=== PATIENT | female | born 1990 | race Caucasian/White ===

== ENCOUNTER 2024-11-05 14:38 | Inpatient (IN) | payer BC, OTHER ==
[2024-11-05 14:48] VITALS: BMI 25.3
[2024-11-05] MEDS ORDERED: FAMOTIDINE 20 MG/50 ML IVPB 20 MG/50 ML MG IVPB ONE ×3 (15:05→16:30)
[2024-11-05] MEDS ORDERED: ACETAMINOPHEN INJECTION 100 ML ONE (15:44)
[2024-11-05] MEDS ORDERED: MAG HYDROX/AL HYDROX/SIMETH 30 ML UNIT-DOSE CUP ONE (15:44)
[2024-11-05 16:12] LABS: ABSOLUTE IMMATURE GRANULOCYTES 0.04 x10^3/uL (0.0-0.031); BASOPHILS # 0.03 x10^3/uL (0.01-0.08); EOSINOPHIL % 0.6 % (0.7-5.8); EOSINOPHILS # 0.08 x10^3/uL (0.04-0.36); MCHC 32.1 g/dl (32.2-35.5); MEAN CELL VOLUME 86.6 fl (79.4-94.8); MEAN PLT VOLUME 11.4 fl (9.4-12.3); MONOCYTE # 0.78 x10^3/uL (0.24-0.86); MONOCYTE % 6.1 % (4.7-12.5); RDW 14.6 % (12.1-16.8)
[2024-11-05] MEDS: SODIUM CHLORIDE 0.9% 500 ML INFUS.BAG IV ONE ×3 (16:15→19:34)
[2024-11-05] MEDS: ACETAMINOPHEN 1000 MG/100 ML BAG IVPB ONE (16:15)
[2024-11-05] MEDS: MAG HYDROX/AL HYDROX/SIMETH 30 ML UNIT-DOSE CUP PO ONE (16:15)
[2024-11-05 16:24] LABS: INR 1.0 (0.83-1.09); PROTHROMBIN TIME (PATIENT) 11.0 SEC (9.7-13.0)
[2024-11-05 16:26] LABS: ACTIVATED PTT 28.1 SECONDS (25.2-36.5)
[2024-11-05 16:36] LABS: EPI CELLS >36 /uL (0-25.1); HYALINE CASTS 3 /uL (0-3.1); URINE APPEARANCE CLEAR; URINE BACTERIA 104 /uL (0-1359); URINE BILIRUBIN NEGATIVE (NEGATIVE); URINE COLOR YELLOW; URINE GLUCOSE (UA) NEGATIVE (NEGATIVE); URINE KETONE TRACE (NEGATIVE); URINE LEUK ESTERASE NEGATIVE (NEGATIVE); URINE NITRITE NEGATIVE (NEGATIVE); URINE PROTEIN 1+ (NEGATIVE); URINE RBC 59 /uL (0-23.9); URINE UROBILINOGEN 0.2 mg/dL (0.2-1.0); URINE WBC 23 /uL (0-25.8)
[2024-11-05 16:38] LABS: CO2 25.0 mmol/L (21-32); GLUCOSE,RANDOM 95.0 mg/dL (74-106)
[2024-11-05 16:41] LABS: CREATININE 0.7 mg/dL (0.55-1.3)
[2024-11-05 16:42] LABS: SGOT/AST 47.0 U/L (15-37)
[2024-11-05 16:43] LABS: TOT PROT 8.2 g/dl (6.4-8.2)
[2024-11-05 16:44] LABS: ALK PHOS 71.0 U/L (45-117)
[2024-11-05 16:49] LABS: SGPT/ALT 33.0 U/L (13-61)
[2024-11-05 17:43] LABS: HIV INTERPRETATION NEGATIVE (NEGATIVE)
[2024-11-05 17:44] LABS: HCV DIAGNOSTIC IN-HOUSE W/RFLX NON-REACTIVE (NONREACTIVE)
[2024-11-05] MEDS ORDERED: VANCOMYCIN 1,000 MG in DEXTROSE 5%-WATER - 250 ML IVPB ONE (19:11)
[2024-11-05] MEDS: DEXTROSE 5%-LACTATED RINGERS 1,000 ML IV SCH (19:15)
[2024-11-05] MEDS ORDERED: PIPERACILLIN/TAZOB 4.5 GM 4.5 GM/100 ML BAG IVPB ONE (19:19)
[2024-11-05] MEDS: PIPERACILLIN/TAZOB 4.5 GM 4.5 GM in DEXTROSE 5%-WATER 100 ML IVPB ONE (19:24)
[2024-11-05] MEDS ORDERED: ACETAMINOPHEN 1000 MG/100 ML BAG IVPB PRN (21:10)
[2024-11-05] MEDS ORDERED: ONDANSETRON 4 MG/2 ML VIAL IVPUSH PRN (21:11)
[2024-11-05] MEDS: VANCOMYCIN 1 GM PREMIX (F) 1 GM/200 ML BAG IVPB ONE (22:48)
[2024-11-06 08:50] LABS: ABSOLUTE IMMATURE GRANULOCYTES 0.01 x10^3/uL (0.0-0.031); BASOPHILS # 0.03 x10^3/uL (0.01-0.08); EOSINOPHIL % 3.6 % (0.7-5.8); EOSINOPHILS # 0.25 x10^3/uL (0.04-0.36); MCHC 31.1 g/dl (32.2-35.5); MEAN CELL VOLUME 86.6 fl (79.4-94.8); MEAN PLT VOLUME 11.8 fl (9.4-12.3); MONOCYTE # 0.53 x10^3/uL (0.24-0.86); MONOCYTE % 7.6 % (4.7-12.5); RDW 14.6 % (12.1-16.8)
[2024-11-06 09:01] LABS: INR 1.16 (0.83-1.09); PROTHROMBIN TIME (PATIENT) 12.6 SEC (9.7-13.0)
[2024-11-06 09:21] LABS: CO2 25.0 mmol/L (21-32); GLUCOSE,RANDOM 99.0 mg/dL (74-106)
[2024-11-06 09:24] LABS: CREATININE 0.5 mg/dL (0.55-1.3); SGOT/AST 18.0 U/L (15-37); SGPT/ALT 22.0 U/L (13-61)
[2024-11-06 09:26] LABS: TOT PROT 6.6 g/dl (6.4-8.2)
[2024-11-06 09:27] LABS: ALK PHOS 46.0 U/L (45-117); IRON SERUM 101 ug/dL (50-175)
[2024-11-06] MEDS: PIPERACILLIN/TAZOB 3.375 GM 3.375 GM in DEXTROSE 5%-WATER - 50 ML IVPB SCH (09:34)
[2024-11-06] MEDS ORDERED: ONDANSETRON 4 MG/2 ML VIAL ONE (13:53)
[2024-11-06] MEDS ORDERED: LIDOCAINE HCL 2% 100 MG/5 ML DISP.SYRIN ONE (13:53)
[2024-11-06] MEDS ORDERED: KETOROLAC TROMETHAMINE 30 MG/1 ML VIAL ONE (13:53)
[2024-11-06] MEDS ORDERED: PHENYLEPHRINE HCL 10 MG/1 ML SINGLE DOSE VIAL ONE (13:53)
[2024-11-06] MEDS ORDERED: DEXAMETHASONE SOD PHOSPHATE 4 MG/1 ML VIAL ONE (13:53)
[2024-11-06] MEDS ORDERED: PROPOFOL 20 ML ONE (13:54)
[2024-11-06] MEDS ORDERED: SUGAMMADEX SODIUM 200 MG/2 ML VIAL ONE ×2 (13:54→15:29)
[2024-11-06] MEDS ORDERED: ROCURONIUM BROMIDE 50 MG/5 ML SYRINGE ONE ×2 (13:54→15:12)
[2024-11-06] MEDS ORDERED: MIDAZOLAM HCL 2 MG/2 ML SINGLE DOSE VIAL ONE (13:54)
[2024-11-06] MEDS ORDERED: CEFOXITIN SODIUM 2 GM IVPB ONE (14:08)
[2024-11-06] MEDS ORDERED: HEPARIN NA (PORCINE) 5,000 UNITS/ML 1ML VIAL ONE (14:09)
[2024-11-06] MEDS: cefoTEtan DISODIUM 1 GM VIAL (RESTRICTED TO ID) IVPB ONE (14:20)
[2024-11-06] MEDS: BUPIVACAINE HCL/PF 2.5 MG/ML - 30 ML VIAL IJ ONE (14:40)
[2024-11-06] MEDS ORDERED: PROMETHAZINE HCL 25 MG/1 ML VIAL IVPB PRN (14:46)
[2024-11-06] MEDS ORDERED: ONDANSETRON 4 MG/2 ML VIAL IVPUSH PRN ×2 (14:46→15:55)
[2024-11-06] MEDS ORDERED: FAMOTIDINE 20 MG/50 ML IVPB 20 MG/50 ML MG IVPB ONE (15:55)
[2024-11-06] MEDS: LACTATED RINGERS SOLUTION 1,000 ML IV SCH (16:10)
[2024-11-06] MEDS ORDERED: PIPERACILLIN/TAZOB 3.375 GM 3.375 GM in DEXTROSE 5%-WATER - 50 ML IVPB SCH (18:00)
[2024-11-06] MEDS: ACETAMINOPHEN 1000 MG/100 ML BAG IVPB PRN (20:47)
[2024-11-06] MEDS: CEFOXITIN SODIUM 1 GM in DEXTROSE 5%-WATER 100 ML IVPB ONE (21:34)
[2024-11-07] MEDS: LACTATED RINGERS SOLUTION 1,000 ML IV SCH (02:17)
[2024-11-07] MEDS: ACETAMINOPHEN 500 MG TABLET (FP) PO ONE (04:25)
[2024-11-07 07:48] LABS: ABSOLUTE IMMATURE GRANULOCYTES 0.03 x10^3/uL (0.0-0.031); BASOPHILS # 0.02 x10^3/uL (0.01-0.08); EOSINOPHIL % 0.3 % (0.7-5.8); EOSINOPHILS # 0.03 x10^3/uL (0.04-0.36); MCHC 31.7 g/dl (32.2-35.5); MEAN CELL VOLUME 86.7 fl (79.4-94.8); MEAN PLT VOLUME 11.7 fl (9.4-12.3); MONOCYTE # 0.69 x10^3/uL (0.24-0.86); MONOCYTE % 6.8 % (4.7-12.5); RDW 14.6 % (12.1-16.8)
[2024-11-07 08:26] LABS: CO2 24.0 mmol/L (21-32); GLUCOSE,RANDOM 91.0 mg/dL (74-106)
[2024-11-07 08:28] LABS: CREATININE 0.5 mg/dL (0.55-1.3)
[2024-11-07 08:29] LABS: SGOT/AST 36.0 U/L (15-37); SGPT/ALT 43.0 U/L (13-61)
[2024-11-07 08:30] LABS: TOT PROT 6.3 g/dl (6.4-8.2)
[2024-11-07 08:32] LABS: ALK PHOS 39.0 U/L (45-117)
[2024-11-07] MEDS: ACETAMINOPHEN 1000 MG/100 ML BAG IVPB SCH (13:04)
[2024-11-08] MEDS: morphine CARPU-JECT 2 MG/1 ML DISP.SYRIN IVPUSH ONE (01:59)
[2024-11-08 07:23] VITALS: TEMP 97.9
[2024-11-08 08:52] LABS: ABSOLUTE IMMATURE GRANULOCYTES 0.02 x10^3/uL (0.0-0.031); BASOPHILS # 0.04 x10^3/uL (0.01-0.08); EOSINOPHIL % 5.5 % (0.7-5.8); EOSINOPHILS # 0.43 x10^3/uL (0.04-0.36); MCHC 31.3 g/dl (32.2-35.5); MEAN CELL VOLUME 86.0 fl (79.4-94.8); MEAN PLT VOLUME 11.4 fl (9.4-12.3); MONOCYTE # 0.48 x10^3/uL (0.24-0.86); MONOCYTE % 6.1 % (4.7-12.5); RDW 14.6 % (12.1-16.8)
[2024-11-08 09:52] LABS: CO2 28.0 mmol/L (21-32); GLUCOSE,RANDOM 115.0 mg/dL (74-106)
[2024-11-08 09:55] LABS: CREATININE 0.5 mg/dL (0.55-1.3); SGPT/ALT 51.0 U/L (13-61)
[2024-11-08 09:57] LABS: TOT PROT 7.1 g/dl (6.4-8.2)
[2024-11-08 09:58] LABS: ALK PHOS 44.0 U/L (45-117); SGOT/AST 29.0 U/L (15-37)
[2024-11-08 12:00] VITALS: BP 116/67; PULSE 78; RESP 19
== END 2024-11-08 13:18 | disposition home or self-care (01) | DRG 419 ==
LOC: JER 14:38 → JERBED 18:09 → OBSVTOIN 19:36 → J8W 20:08
PROVIDERS: ADMIT Internal Medicine; ATTEND Nurse Practitioner Family
PROC: 0FT44ZZ Resection of Gallbladder, Percutaneous Endoscopic Approach (ICD-10-PCS; principal; 2024-11-06 11:00)
DX: K85.10 Biliary acute pancreatitis without necrosis or infection (principal)
CPT/HCPCS: 36415; 74177-TC; 74181-TC; 76705-TC; 76830-TC; 80053; 81003; 82728; 83540; 83550; 83605; 83690; 83735; 84100; 84484; 84703; 85025; 85610; 85730; 86038; 86140; 86803; 86850; 86900; 86901; 87086; 87389; 88304-TC; 93005; 93010; 94760; 99285-25; G0378; Q9967